=== PATIENT | male | born 1930 | race Caucasian/White ===

== ENCOUNTER 2018-12-30 11:28 | Inpatient (IN) | payer OTHER, MEDICARE ==
[~2018-12-30] VITALS: Ht 177.8 cm; Wt 77.6 kg
[2018-12-30] MEDS ORDERED: BUSP10 PO (11:35)
[2018-12-30] MEDS ORDERED: ATOR40TA PO (11:35)
[2018-12-30] MEDS ORDERED: SERT50 PO (11:36)
[2018-12-30] MEDS ORDERED: DONEPEZIL HCL10 MG PO (11:36)
[2018-12-30] MEDS ORDERED: OMEPRAZOLE MAGN20 MG PO (11:36)
[2018-12-30] MEDS ORDERED: LISI20 PO (11:36)
[2018-12-30] MEDS ORDERED: Flomax0.4 MG PO (11:37)
[2018-12-30 14:58] LABS: BASOPHILS ABSOLUTE AUTO 0.02 K/mm3 (0.00-0.23); BASOPHILS PERCENT AUTO 0 % (0-2); EOSINOPHILS ABSOLUTE AUTO 0.01 K/mm3 (0.00-0.68); EOSINOPHILS PERCENT AUTO 0 % (0-6); Hemoglobin 12.6 g/dL (13.5-17.5); IMMATURE GRAN ABSOLUTE AUTO 0.09 K/mm3 (0.00-0.10); IMMATURE GRAN PERCENT AUTO 1 % (0-1); LYMPHOCYTES ABSOLUTE AUTO 0.82 K/mm3 (0.84-5.20); LYMPHOCYTES PERCENT AUTO 6 % (21-46); MONOCYTES ABSOLUTE AUTO 1.55 K/mm3 (0.16-1.47); MONOCYTES PERCENT AUTO 11 % (4-13); Mean Corpuscular HGB 29.9 pg (26.0-34.0); Mean Corpuscular HGB Conc 33.2 g/dL (31.5-36.5); Mean Corpuscular Volume 90 fL (80-100); Mean Platelet Volume 11.4 fL (9.1-12.4); NEUTROPHILS ABSOLUTE AUTO 11.23 K/mm3 (1.96-9.15); NEUTROPHILS PERCENT AUTO 82 % (41-73); Platelet Count 151 K/mm3 (150-400); RDW Coefficient Variation 13.6 % (11.7-14.2); Red Blood Cell Count 4.22 M/mm3 (4.30-5.90); White Blood Cell Count 13.72 K/mm3 (4.00-11.30)
[2018-12-30 15:18] LABS: Magnesium, Blood 1.8 mg/dL (1.6-2.4)
[2018-12-30 15:27] LABS: Alanine Aminotransfer (ALT/SGP 124 U/L (12-78); Albumin, Blood 2.5 g/dL (3.4-5.0); Albumin/Globulin Ratio 0.7 (0.8-1.8); Alk Phos 148 U/L (50-136); Anion Gap 8 mmol/L (6-16); Aspartate Aminotrans (AST/SGOT 25 U/L (12-37); Bilirubin, Total 0.9 mg/dL (0.1-1.0); Blood Urea Nitrogen 18 mg/dL (8-24); Bun/Creatinine Ratio 16.5 (12.0-20.0); CO2, Blood 26 mmol/L (21-32); Calcium, Blood 8.3 mg/dL (8.5-10.1); Chloride, Blood 103 mmol/L (98-108); Creatinine, Blood 1.09 mg/dL (0.60-1.20); Globulin, Blood 3.4 g/dL (2.2-4.0); Glomerular Filtration Rate >60 (60-); Glucose, Blood 102 mg/dL (70-99); Potassium, Blood 3.6 mmol/L (3.5-5.5); Sodium, Blood 137 mmol/L (136-145); Total Protein, Blood 5.9 g/dL (6.4-8.2)
[2018-12-30] MEDS ORDERED: THERA1 EACH PO (15:40)
[2018-12-31 03:55] LABS: BASOPHILS ABSOLUTE AUTO 0.03 K/mm3 (0.00-0.23); BASOPHILS PERCENT AUTO 0 % (0-2); EOSINOPHILS ABSOLUTE AUTO 0.06 K/mm3 (0.00-0.68); EOSINOPHILS PERCENT AUTO 1 % (0-6); Hematocrit 37.8 % (37.0-53.0); Hemoglobin 12.5 g/dL (13.5-17.5); IMMATURE GRAN ABSOLUTE AUTO 0.09 K/mm3 (0.00-0.10); IMMATURE GRAN PERCENT AUTO 1 % (0-1); LYMPHOCYTES ABSOLUTE AUTO 0.97 K/mm3 (0.84-5.20); LYMPHOCYTES PERCENT AUTO 8 % (21-46); MONOCYTES ABSOLUTE AUTO 1.53 K/mm3 (0.16-1.47); MONOCYTES PERCENT AUTO 12 % (4-13); Mean Corpuscular HGB 29.9 pg (26.0-34.0); Mean Corpuscular HGB Conc 33.1 g/dL (31.5-36.5); Mean Corpuscular Volume 90 fL (80-100); Mean Platelet Volume 10.7 fL (9.1-12.4); NEUTROPHILS ABSOLUTE AUTO 10.24 K/mm3 (1.96-9.15); NEUTROPHILS PERCENT AUTO 79 % (41-73); Platelet Count 153 K/mm3 (150-400); RDW Coefficient Variation 13.5 % (11.7-14.2); RDW Standard Deviation 45.2 fL (35.1-46.3); Red Blood Cell Count 4.18 M/mm3 (4.30-5.90); White Blood Cell Count 12.92 K/mm3 (4.00-11.30)
[2018-12-31 04:09] LABS: International Normalized Ratio 1.03; Prothrombin Time Results 10.9 Sec (9.7-11.5)
[2018-12-31 04:14] LABS: Alanine Aminotransfer (ALT/SGP 94 U/L (12-78); Albumin, Blood 2.2 g/dL (3.4-5.0); Albumin/Globulin Ratio 0.6 (0.8-1.8); Alk Phos 133 U/L (50-136); Anion Gap 7 mmol/L (6-16); Aspartate Aminotrans (AST/SGOT 12 U/L (12-37); Bilirubin, Total 1.1 mg/dL (0.1-1.0); Blood Urea Nitrogen 17 mg/dL (8-24); Bun/Creatinine Ratio 16.2 (12.0-20.0); CO2, Blood 26 mmol/L (21-32); Calcium, Blood 8.1 mg/dL (8.5-10.1); Chloride, Blood 105 mmol/L (98-108); Creatinine, Blood 1.05 mg/dL (0.60-1.20); Globulin, Blood 3.5 g/dL (2.2-4.0); Glomerular Filtration Rate >60 (60-); Glucose, Blood 94 mg/dL (70-99); Magnesium, Blood 1.7 mg/dL (1.6-2.4); Phosphorus, Blood 2.4 mg/dL (2.5-4.9); Potassium, Blood 3.3 mmol/L (3.5-5.5); Sodium, Blood 138 mmol/L (136-145); Total Protein, Blood 5.7 g/dL (6.4-8.2)
--- NOTE | 2018-12-31 04:38 | NUR ---
SHIFT SUMMARY PT HAS BEEN CONFUSED AND FORGETFUL THROUGH THE SHIFT. BED ALARM HAS BEEN ON, PT ORIENTED TO PLACE/SITUATION MULT. TIMES. PT HAS BEEN ASSISTED TO BATHROOM SEVERAL TIMES AND WALKS WITH STANDBY ASSIST. PT HAS REPORTED NO PAIN AND HAS SLEPT MOST OF THE NIGHT. ASSISTED WITH ADL'S PRN.
--- NOTE | 2018-12-31 09:38 | NUR ---
PER ER EKG WAS COMPLETED YESTERDAY EVENING. DISCUSSED WITH FLATCAR WHACKER.
--- NOTE | 2018-12-31 12:14 | NUR ---
RECENTLY DISCUSSED PLAN OF CARE WITH DR CASTILLO, REPORTS DOES NOT PLAN ON ANY SURGERY AT THIS TIME.
--- NOTE | 2018-12-31 13:15 | NUR ---
DR LAWRENCE HERE TO SEE PT, REPORTS TO CONTACT DR CASTILLO PT APPEARS TO HAVE RUQ PAIN UP PALPATION. PT DENIES PAIN WHEN NOT BEING PUSHED ON, NO PALPATION.
--- NOTE | 2018-12-31 13:35 | NUR ---
DR CASTILLO OFFICE CALLED, REPORTS WILL SEND MESSAGE TO DR CASTILLO.
--- NOTE | 2018-12-31 15:02 | NUR ---
PT REPORTS MAY GIVE INFORMATION TO DAUGHTER. DAUGHTER GIVEN UPDATE.
--- NOTE | 2018-12-31 15:28 | NUR ---
PT TO IMAGING RECENTLY BY W/C. GIVEN UPDATE.
--- NOTE | 2018-12-31 17:29 | NUR ---
DR CASTILLO RECENTLY HERE AND HAS SEEN PT. ALSO CALLED AND SON BY PHONE.
--- NOTE | 2018-12-31 18:00 | NUR ---
SHIFT SUMMARY PT TOLERATING C.L.. PT BEEN ASSISTED WITH ADL'S PRN. PT WORKED WITH THERAPY TODAY. PT BEEN UP AND AMBULATED IN HALLWAY THIS EVENING WITH RN. PT BEEN UP TO CHAIR WITH TAB ALARM IN PLACE. PT HAD CT TODAY. DR LAWRENCE AND DR CASTILLO BEEN TO SEE PT. PT TO BE NPO AFTER MIDNIGHT. DR CASTILLO TALKED WITH AND SON AFTER SEEING PT THIS EVENING.
[2019-01-01 04:14] LABS: BASOPHILS ABSOLUTE AUTO 0.03 K/mm3 (0.00-0.23); BASOPHILS PERCENT AUTO 0 % (0-2); EOSINOPHILS ABSOLUTE AUTO 0.05 K/mm3 (0.00-0.68); EOSINOPHILS PERCENT AUTO 0 % (0-6); Hemoglobin 12.2 g/dL (13.5-17.5); IMMATURE GRAN ABSOLUTE AUTO 0.27 K/mm3 (0.00-0.10); IMMATURE GRAN PERCENT AUTO 2 % (0-1); LYMPHOCYTES ABSOLUTE AUTO 0.81 K/mm3 (0.84-5.20); LYMPHOCYTES PERCENT AUTO 5 % (21-46); MONOCYTES ABSOLUTE AUTO 1.76 K/mm3 (0.16-1.47); MONOCYTES PERCENT AUTO 12 % (4-13); Mean Corpuscular HGB 29.9 pg (26.0-34.0); Mean Corpuscular Volume 91 fL (80-100); Mean Platelet Volume 10.7 fL (9.1-12.4); NEUTROPHILS ABSOLUTE AUTO 12.24 K/mm3 (1.96-9.15); NEUTROPHILS PERCENT AUTO 81 % (41-73); Platelet Count 167 K/mm3 (150-400); RDW Coefficient Variation 13.6 % (11.7-14.2); RDW Standard Deviation 45.9 fL (35.1-46.3); Red Blood Cell Count 4.08 M/mm3 (4.30-5.90); White Blood Cell Count 15.16 K/mm3 (4.00-11.30)
[2019-01-01 04:37] LABS: Alanine Aminotransfer (ALT/SGP 53 U/L (12-78); Albumin, Blood 1.9 g/dL (3.4-5.0); Albumin/Globulin Ratio 0.6 (0.8-1.8); Alk Phos 119 U/L (50-136); Anion Gap 8 mmol/L (6-16); Aspartate Aminotrans (AST/SGOT 12 U/L (12-37); Bilirubin, Total 1.1 mg/dL (0.1-1.0); Blood Urea Nitrogen 14 mg/dL (8-24); Bun/Creatinine Ratio 14.7 (12.0-20.0); CO2, Blood 23 mmol/L (21-32); Calcium, Blood 7.8 mg/dL (8.5-10.1); Chloride, Blood 109 mmol/L (98-108); Creatinine, Blood 0.95 mg/dL (0.60-1.20); Globulin, Blood 3.2 g/dL (2.2-4.0); Glomerular Filtration Rate >60 (60-); Glucose, Blood 122 mg/dL (70-99); Potassium, Blood 3.1 mmol/L (3.5-5.5); Sodium, Blood 140 mmol/L (136-145); Total Protein, Blood 5.1 g/dL (6.4-8.2)
--- NOTE | 2019-01-01 04:51 | NUR ---
SHIFT SUMMARY PT HAS SLEPT MOST OF THE NIGHT. REPORTS NO PAIN. WALKS TO BATHROOM WITH STANDBY ASSIST. PT IS CONFUSED, BED ALARM IN USE. PT HAS BEEN NPO AFTER MIDNIGHT PER ORDER. ASSISTED WITH ADL'S PRN.
--- NOTE | 2019-01-01 09:58 | NUR ---
THERAPY: PT WORKING WITH THERAPY AT THIS TIME TO AMBULATE. DENIES PAIN.
--- NOTE | 2019-01-01 14:31 | NUR ---
01/01/19 1431 Stefanie Simon BEDOYA CATHETER ATTEMPTED BUT UNABLE TO PLACE
--- NOTE | 2019-01-01 16:47 | NUR ---
OBTAINED REPORT FROM CONSTANTINE VINES. PT STILL IN OR AT THIS TIME.
--- NOTE | 2019-01-01 17:28 | NUR ---
WAKES TO VERBAL STIMULI HE STATES " STARING TO FEEL A LOT BETTER" AND WINKS . HE DENIES PAIN OR NAUSEA FT REMOVED PAS IN PLACE
--- NOTE | 2019-01-01 18:09 | NUR ---
SUMMARY RETURN TO ROOM FROM PACU ORIENTED TO PERSON AND PLACE, CALM AND COOPERATIVE, DENIES ANY PAIN OR NAUSEA. ABD WITH 2X2 GAUZE DRESSINGS X4 CLEAN AND DRY. 4X4 GAUZE OVER EMI DRAIN EXIT IN RIGHT QUAD DRY AND INTACT. PATIENT EATING JELLO. PLACED ON TELE AND SHOWS SR AT RATE OF 88
--- NOTE | 2019-01-01 18:22 | NUR ---
SCROTAL SWELLING NOTED, COCCYX REDDENED WITH NO AREAS OF BREAKDOWN- MEPILEX APPLIED
[2019-01-02 04:10] LABS: BASOPHILS ABSOLUTE AUTO 0.02 K/mm3 (0.00-0.23); BASOPHILS PERCENT AUTO 0 % (0-2); EOSINOPHILS PERCENT AUTO 0 % (0-6); Hematocrit 35.1 % (37.0-53.0); Hemoglobin 11.4 g/dL (13.5-17.5); IMMATURE GRAN ABSOLUTE AUTO 0.14 K/mm3 (0.00-0.10); IMMATURE GRAN PERCENT AUTO 1 % (0-1); LYMPHOCYTES ABSOLUTE AUTO 0.67 K/mm3 (0.84-5.20); LYMPHOCYTES PERCENT AUTO 6 % (21-46); MONOCYTES ABSOLUTE AUTO 0.84 K/mm3 (0.16-1.47); MONOCYTES PERCENT AUTO 7 % (4-13); Mean Corpuscular HGB 29.4 pg (26.0-34.0); Mean Corpuscular HGB Conc 32.5 g/dL (31.5-36.5); Mean Corpuscular Volume 91 fL (80-100); NEUTROPHILS ABSOLUTE AUTO 10.61 K/mm3 (1.96-9.15); NEUTROPHILS PERCENT AUTO 86 % (41-73); Platelet Count 199 K/mm3 (150-400); RDW Standard Deviation 46.7 fL (35.1-46.3); Red Blood Cell Count 3.88 M/mm3 (4.30-5.90); White Blood Cell Count 12.28 K/mm3 (4.00-11.30)
--- NOTE | 2019-01-02 04:22 | NUR ---
Patient alert and oriented x4. VSS. No complaints of pain or nausea. Tolerating Clear liquids. EMI draining Serosangiunous fluid. Fluid leaking around EMI drain. Dressing reinforced but quickly became saturated; changed dressing. 4 surgical stabs to abd; DCI. Patient voided 150ml at start of shift, dark víctor in color with no clots. Bladder scanned to check for residual; 158ml found. 1500ml IV infused, asked patient to void, stated he doesnt feel as if he needs to and when he does, he will. On telemetry: SR 80s. Up with SBA and FWW.
[2019-01-02 04:24] LABS: Albumin, Blood 1.7 g/dL (3.4-5.0); Anion Gap 7 mmol/L (6-16); Blood Urea Nitrogen 16 mg/dL (8-24); Bun/Creatinine Ratio 15.5 (12.0-20.0); CO2, Blood 23 mmol/L (21-32); Calcium, Blood 7.7 mg/dL (8.5-10.1); Chloride, Blood 111 mmol/L (98-108); Creatinine, Blood 1.03 mg/dL (0.60-1.20); Glomerular Filtration Rate >60 (60-); Glucose, Blood 161 mg/dL (70-99); Phosphorus, Blood 3.1 mg/dL (2.5-4.9); Sodium, Blood 141 mmol/L (136-145)
--- NOTE | 2019-01-02 06:21 | NUR ---
Patient reports he has passed gas
--- NOTE | 2019-01-02 19:28 | NUR ---
1904 Patient found on floor. States he slipped out of the chair. Denies hitting his head or having any pain from fall. Skin tear to right forearm; Mepilex applied. Blood pressure elevated 176/90. Will recheck. Notified Dr. Dietz, no new orders received.
--- NOTE | 2019-01-02 19:30 | NUR ---
SHIFT SUMMARY PAIN HAS BEEN MINIMAL THIS SHIFT. PT HAS HAD SMALL AMOUNT OF SEROSANGUINOUS DRAINAGE OUT OF EMI DRAIN. PT HAS BEEN ALERT AND ORIENTED MOST OF THE DAY, HE HAS BECOME MORE CONFUSED THIS EVENING. PT DENIES PAIN. VSS. REPORT GIVEN TO ERIK VINES.
--- NOTE | 2019-01-03 03:32 | NUR ---
SHIFT SUMMARY POD 2 LAP ANA. PATIENT HAS NOT COMPLAINED OF PAIN DURING SHIFT. SMALL BOWEL MOVEMENT DURING SHIFT. PATIENT HAS BEEN ALERT AND CONFUSED DURING THE NIGHT. HE IS ABLE TO FOLLOW DIRECTIONS BUT DOES NOT CALL APPROPRIATLY OR REMEMEBER TIME, LOCATION, OR SITUATION. HE HAS REMOVED HIS TELE AND HAS BEEN PULLING ON HIS EMI DRAIN. BED ALARM IS ON. HAS AMBULATED TO RESTROOM WITH ONE ASSIST. PATIENT HAS DENIED PAIN SINCE BEING FOUND ON THE GROUND AT SHIFT CHANGE. SMALL SKIN TEAR ON RIGHT FOREARM CLEANED AND DRESSED. DENIES HITTING HEAD.
--- NOTE | 2019-01-03 10:43 | NUR ---
[facility] EMI DRAIN PER ORDERS
--- NOTE | 2019-01-03 11:33 | NUR ---
pt discharged REMOVED TELE AND DC'D IV, CATHETER INTACT. REVIEWED DC INSTRUCTIONS W/PT. ALSO REVIEWED DC INSTRUCTIONS W/SPOUSE OVER PHONE. PT LEFT UNIT VIA GURNEY TRANSPORT.
== END 2019-01-03 11:30 | disposition home or self-care (01) | DRG 854 ==
LOC: ER 11:28 → SURS 15:41
PROVIDERS: Family Medicine; Nurse Practitioner Acute Care; Surgery; ADMIT Internal Medicine
PROC: 8E0W4CZ Robotic Assisted Procedure of Trunk Region, Percutaneous Endoscopic Approach (ICD-10-PCS; 2019-01-01)
PROC: BF101ZZ Fluoroscopy of Bile Ducts using Low Osmolar Contrast (ICD-10-PCS; 2019-01-01)
PROC: 0FT44ZZ Resection of Gallbladder, Percutaneous Endoscopic Approach (ICD-10-PCS; principal; 2019-01-01 11:45)
DX: A41.9 Sepsis, unspecified organism (principal); K81.2 Acute cholecystitis with chronic cholecystitis; R65.20 Severe sepsis without septic shock; I10 Essential (primary) hypertension; E78.5 Hyperlipidemia, unspecified; K21.9 Gastro-esophageal reflux disease without esophagitis; Z90.79 Acquired absence of other genital organ(s); Z87.891 Personal history of nicotine dependence; N40.0 Benign prostatic hyperplasia without lower urinary tract symptoms; F32.9 Major depressive disorder, single episode, unspecified; F03.90 Unspecified dementia, unspecified severity, without behavioral disturbance, psychotic disturbance, mood disturbance, and anxiety; F41.1 Generalized anxiety disorder; E87.6 Hypokalemia; E83.39 Other disorders of phosphorus metabolism; K82.A1 Gangrene of gallbladder in cholecystitis
CPT/HCPCS: 36415; 71046; 74176; 74300; 80053; 80069; 83605; 83735; 83880; 84100; 84145; 85025; 85610; 87040; 88304; 93005; 93010; 96361; 96365; 96366; 97116; 97162; 97165; 97530; 97535; 99285-25; C1894; J0360; J1100; J2370; J2405; J2543; J2704; J3010; J3480; J7030; J7050; J7120